=== PATIENT | male | born 1965 | race Caucasian/White ===

== ENCOUNTER → 2023-07-09 13:57 | Outpatient (REF) | payer OTHER, SELFPAY | LOC: HWRAD 13:57 | PROVIDERS: ATTENDING PHYSICIAN Family Medicine | DX: R30.0 Dysuria (principal) | CPT/HCPCS: 76770 ==

== ENCOUNTER 2023-08-09 06:15 | Day surgery (SDC) | payer OTHER, SELFPAY ==
[2023-08-02 07:02] VITALS: BMI 27.6
[2023-08-02 09:00] LABS: APTT 29.6 Sec (23.4-35.0); INR 1.03; PT 13.3 Sec (11.4-14.6)
[2023-08-09] VITALS (8 sets, daily range): BP systolic 96–144; BP diastolic 56–85; BMI 27.6
[2023-08-09] MEDS: Pyridium 200 MG PO (11:44)
[2023-08-09] MEDS: NORMOSOL-R 1000 IV (11:58)
== END 2023-08-09 15:18 | disposition home or self-care (01) ==
LOC: SDS 06:15
PROVIDERS: ATTENDING PHYSICIAN Urology; FAMILY PHYSICIAN Family Medicine
DX: N21.0 Calculus in bladder (principal); N40.1 Benign prostatic hyperplasia with lower urinary tract symptoms; N13.9 Obstructive and reflux uropathy, unspecified
CPT/HCPCS: 52317; C9739; 36415; 85610; 85730; 93005; L8699

== ENCOUNTER → 2024-12-29 15:43 | Outpatient (REF) | payer OTHER, SELFPAY | LOC: RAD 15:43 | PROVIDERS: ATTENDING PHYSICIAN Urology; FAMILY PHYSICIAN Family Medicine | DX: R31.29 Other microscopic hematuria (principal); N20.0 Calculus of kidney; N28.1 Cyst of kidney, acquired | CPT/HCPCS: 74178; 76770; Q9967 ==

== ENCOUNTER 2025-02-02 06:26 | Day surgery (SDC) | payer OTHER, SELFPAY ==
[2025-01-27 14:07] VITALS: BMI 26.2
[2025-01-27 14:28] LABS: Hematocrit 44.3 % (39.0-52.0); Hemoglobin 15.1 g/dL (13.0-18.0); Mean Corp Hgb Conc. 34.1 g/dL (33.0-37.0); Mean Corpuscular Volume 91.9 fL (80.0-94.0); Platelet Count 217 10^3/uL (130-400); Red Cell Dist. Width 11.6 % (11.5-14.5)
[2025-02-02] VITALS (24 sets, daily range): BP systolic 103–140; BP diastolic 61–85; BMI 26.2
[2025-02-02] MEDS: NORMOSOL-R/PLASMALYTE-A 1000 IV (08:39)
[2025-02-02] MEDS: DILAUDID 0.5 MG IV (12:06)
[2025-02-02] MEDS: DETROL LA 4 MG PO (12:07)
[2025-02-02] MEDS: NSS 1000 IV ×2 (13:32→22:45)
[2025-02-02] MEDS: TYLENOL 650 MG PO (17:58)
[2025-02-02] MEDS: SENOKOT 8.6 MG PO (20:18)
[2025-02-03 03:14] VITALS: BP 128/66
--- NOTE | 2025-02-03 04:08 | DOWNTIME ---
There was a [employer] Downtime on 02/03/2025 from 0100 to 02/03/2025 at 0255. Downtime documentation of patient's care, including medication administrations, has been reconciled in the electronic record per guidelines. Refer to the
patient's paper chart under the miscellaneous tab to see printed paper medication records and downtime forms.
[2025-02-03 06:35] LABS: Hematocrit 37.3 % (39.0-52.0); Hemoglobin 12.7 g/dL (13.0-18.0); Mean Corp Hgb Conc. 34.0 g/dL (33.0-37.0); Mean Corpuscular Volume 94.2 fL (80.0-94.0); Platelet Count 205 10^3/uL (130-400); Red Cell Dist. Width 11.6 % (11.5-14.5)
[2025-02-03 06:49] LABS: Blood Urea Nitrogen 12 mg/dl (9-20); Calcium 8.4 mg/dl (8.4-10.2); Carbon Dioxide 26 mmol/L (22-30); Chloride 109 mmol/L (98-107); Estimated Creatinine Clearance 91 ml/min; Glucose 95 mg/dl (70-99); Potassium 3.9 mmol/L (3.5-5.1); Sodium 139 mmol/L (135-145); eGFR > 60.00
[2025-02-03 07:00] VITALS: BP 135/79
[2025-02-03] MEDS: SENOKOT 8.6 MG PO (08:42)
[2025-02-03] MEDS: TYLENOL 650 MG PO (08:50)
--- NOTE | 2025-02-03 08:55 | W.PN.URO.CBU ---
Today's Communication / Plan
-
TOV
Discharge
Assessment / Plan
-
59M POD 1 s/p TURP, stone removal
TOV today
likely discharge
Diagnosis
-
Date of Service: February 03, 2025
-
Patient Diagnosis:
BPH
bladder stone
Post Op Day: 1 s/p TURP
Subjective
-
no events
Objective
-
Vital Signs
Temp Pulse Resp BP Pulse Ox
98.6 F 53 20 135/79 99
02/03/25 07:00 02/03/25 07:00 02/03/25 07:00 02/03/25 07:00 02/03/25 07:00
Intake and Output
02/02/25 02/03/25 02/04/25
06:59 06:59 06:59
Intake Total 2180 / 2180
Output Total 1200 / 1200
Balance 980 / 980
Intake:
Oral fluids 180 / 180
IV fluids (Total) 2000 / 2000
Normosol 600 / 600
Output:
True Urine Output from [facility] 1200 / 1200
Laboratory Results
02/03/25 05:49
02/03/25 05:49
Physical Exam
-
General - well developed, well nourished, no acute distress
Chest - clear bilaterally
Abdomen - soft, non-tender, positive bowel sounds, no CVAT, no incisional pain or distention
Elizabeth light pink
[2025-02-03 11:07] VITALS: BP 138/80
--- NOTE | 2025-02-03 11:42 | CM ---
Initial assessment completed at bedside
Pharmacy verified: [facility] @ [address] [place] [address]
Family Physician: Rigoberto Brown; [address] [facility] , [place] [id number];
Lives w/ ; multilevel home; 2 steps to enter; his bedroom and bath are on the 1st floor
PLOF: independent with ambulation, stairs, and ADLs; drives; works director [employer]
No DME
will transport home
Plan: Discharge to home; no needs
== END 2025-02-03 11:56 | disposition home or self-care (01) ==
LOC: SDS 06:26
PROVIDERS: ATTENDING PHYSICIAN Urology
DX: N21.0 Calculus in bladder (principal); N40.0 Benign prostatic hyperplasia without lower urinary tract symptoms
CPT/HCPCS: 52601; 52317; 36415; 80048; 85027; 88305; 93005